=== PATIENT | male | born 1995 | race Caucasian/White ===

== ENCOUNTER 2018-05-01 15:57 | Emergency (ER) | END 2018-05-01 19:51 | disposition short-term general hospital (02) ==

== ENCOUNTER 2018-07-17 10:37 | Emergency (ER) | payer SELFPAY ==
[~2018-07-17] VITALS: Ht 182.9 cm; Wt 85.0 kg
[2018-07-17 10:40] VITALS: Ht 182.9 cm; Wt 85.0 kg
--- NOTE | 2018-07-17 12:29 | ERD ---
ER Documentation Chief Complaint Chief Complaint penile pain x 2 days and discharge HPI 23-year-old male presents with 2-day history of pain and discharge him from his penis. Patient states that he has had unprotected sex with release 10 women over the last month. Patient is having dysuria. Denies fevers, vomiting, abdominal pain, chills, hematuria. Denies past medical history. Denies allergies. Denies medications. History of jaw surgery. Denies alcohol, tobacco, drug use. Up to date on vaccines. ROS All systems reviewed and are negative except as per history of present illness. Medications Home Meds No Active Prescriptions or Reported Meds Allergies Allergies: Coded Allergies: No Known Allergy (Unverified , 05/01/18) PMhx/Soc History of Surgery: No Anesthesia Reaction: No Hx Neurological Disorder: No Hx Respiratory Disorders: No Hx Cardiac Disorders: No Hx Psychiatric Problems: No Hx Miscellaneous Medical Probl: No Hx Alcohol Use: Yes Hx Substance Use: Yes Hx Tobacco Use: Yes Physical Exam Vitals Vital Signs Date Temp Pulse Resp B/P (MAP) Pulse Ox O2 O2 Flow FiO2 Time Delivery Rate 07/17/18 98.6 89 18 120/65 98 Room Air 14:26 (83) 07/17/18 98.0 110 18 147/79 98 10:40 (101) Physical Exam Const: No acute distress Head: Atraumatic Eyes: Normal Conjunctiva ENT: Normal External Ears, Nose and Mouth. Neck: Full range of motion. No meningismus. Resp: Clear to auscultation bilaterally Cardio: Regular rate and rhythm, no murmurs Abd: Soft, non tender, non distended. Normal bowel sounds : Thick yellow discharge noted on the head of the penis. Testicles are nontender nonerythematous without edema. No signs of balanitis. Neur: Awake and alert Psych: Normal Mood and Affect Results 24 hrs Laboratory Tests Test 07/17/18 12:31 Urine Color YELLOW Urine Clarity CLOUDY Urine pH 8.0 Urine Specific [place] 1.019 Urine Ketones NEGATIVE mg/dL Urine Nitrite NEGATIVE mg/dL Urine Bilirubin NEGATIVE mg/dL Urine Urobilinogen NEGATIVE mg/dL Urine Leukocyte Esterase 3+ Lan/ul Urine Microscopic RBC 6 /HPF Urine Microscopic WBC > 182 /HPF Urine Bacteria FEW /HPF Urine Hemoglobin NEGATIVE mg/dL Urine Glucose NEGATIVE mg/dL Urine Total Protein NEGATIVE mg/dl Current Medications Medications Dose Sig/John Start Time Status Last (Trade) Ordered Route PRN Stop Time Admin Dose Reason Admin Ceftriaxone 250 mg ONCE ONCE 07/17/18 DC 07/17/18 Sodium IM 14:30 14:15 (Rocephin) 07/17/18 14:31 1,000 mg ONCE ONCE 07/17/18 DC 07/17/18 Azithromycin PO 14:30 14:15 (Zithromax) 07/17/18 14:31 Lidocaine 5 ml ONCE ONCE 07/17/18 DC 07/17/18 (Xylocaine INJ 14:30 14:15 1% (Mpf)) 07/17/18 14:31 Procedures/MDM ER course: UA, GC, fungal wet mount. 23-year-old male presents with 2-day history of pain and discharge him from his penis. Patient states that he has had unprotected sex with release 10 women over the last month. Patient is having dysuria. Denies any treatments. Urinating exacerbates the pain. Denies fevers, vomiting, abdominal pain, chills, hematuria. Wet beverly were negative so patient was treated for gonorrhea chlamydia prophylactically with ceftriaxone and azithromycin. Patient counseled regarding safe sex behaviors. I have low suspicion for paraphimosis. Patient discharged with strict ER precautions. Patient advised to follow up with PMD. All questions answered at discharge. Departure Diagnosis: Primary Impression: Penile discharge Condition: Stable MARISOL TINSLEY Jul 17, 2018 12:29
[2018-07-17 14:26] VITALS: BP 120/65; PULSE 89; RESP 18
[2018-07-17] MEDS ORDERED: CEFTRIAXONE 250 MG INJ IM ONE (14:30)
[2018-07-17] MEDS ORDERED: AZITHROMYCIN 250 MG TAB PO ONE (14:30)
[2018-07-17] MEDS ORDERED: LIDOCAINE 1% (MPF) 5 ML VIAL INJ ONE (14:30)
== END 2018-07-17 14:26 | disposition home or self-care (01) ==
LOC: FTE 10:37
DX: R36.9 Urethral discharge, unspecified (principal); Z87.891 Personal history of nicotine dependence
CPT/HCPCS: 81001; 87210; 87591; 96372; 99284; J0696

== ENCOUNTER 2018-09-20 14:12 | Emergency (ER) | payer SELFPAY ==
[~2018-09-20] VITALS: Ht 172.7 cm; Wt 94.8 kg
[2018-09-20 15:02] VITALS: BP 137/63; PULSE 95; RESP 20; Ht 172.7 cm; Wt 94.8 kg
--- NOTE | 2018-09-20 17:22 | ERD ---
ER Documentation Chief Complaint Chief Complaint c/o bilateral eye redness, wouldn't talk what happened HPI 23-year-old male, presents to the emergency department, complaining of bilateral ocular erythema, associated with yellowish discharge and itching sensation. The symptoms started 3 days ago, associated with sore throat and runny nose.. The patient denies blurry vision, no fever, no foreign bodies, no headache, no nausea or vomiting. ROS All systems reviewed and are negative except as per history of present illness. Medications Home Meds Active Scripts Polymyxin B Sulfate-TMP* (Polymyxin B-TMP Eye Drops*) 10 Ml Drops, 1 DROP BOTH EYES Q4H WHILE AWAKE for 7 Days, EA Prov:KATHY FORREST MD 09/20/18 Allergies Allergies: Coded Allergies: No Known Allergy (Unverified , 05/01/18) PMhx/Soc History of Surgery: No Anesthesia Reaction: No Hx Neurological Disorder: No Hx Respiratory Disorders: No Hx Cardiac Disorders: No Hx Psychiatric Problems: No Hx Miscellaneous Medical Probl: No Hx Alcohol Use: Yes Hx Substance Use: Yes Hx Tobacco Use: Yes Smoking Status: Never smoker FmHx Family History: diabetes, other (Asthma); No coronary disease Physical Exam Vitals Vital Signs Date Temp Pulse Resp B/P (MAP) Pulse Ox O2 O2 Flow FiO2 Time Delivery Rate 09/20/18 98.2 95 20 137/63 99 15:02 (87) Physical Exam Patient alert, oriented, vital signs stable. HEAD: Normocephalic, atraumatic. EYES: PERRLA, EOMI, Sclera and conjunctiva injected with yellowish discharge. Anterior chamber clear. None NOSE: Clear and patent nostrils. EARS: Canals clear, tympanic membranes WNL. MOUTH: normal lips and tongue, no oral lesions. THROAT: Normal oropharynx, no tonsillar exudates. NECK: Supple, No lymphadenopathy. Full ROM without pain or tenderness. HEART: RRR, no rubs, murmurs, clicks or gallops. LUNGS: Clear to auscultation. ABDOMEN: Soft, non-tender without masses or hepatosplenomegaly. EXTREMITIES: No edema bilaterally. BACK: Full ROM, no deformity, normal back exam NEURO: Cranial nerves grossly intact, no motor or sensory deficit SKIN: No rashes, no petechia. Procedures/MDM Differential diagnosis include but not limited to: infection bacterial/viral/fungal, iritis, scleritis, corneal abrasion, allergies, foreign body, glaucoma. Physical examination and clinical presentation consistent most likely with acute bacterial conjunctivitis. During the ED course the patient remained stable, no new complaints. Clinical impression discussed with patient who agrees with management. The patient is stable to be treated outpatient and will be discharged home; Some side effects of prescribed medications (headache, rash, nausea, vomiting, d iarrhea, interactions with other medications) were reviewed. The patient was instructed to follow up with the primary care provider in the next 48h. If symptoms persist, worsen or new symptoms develop, then patient should return to the ED immediately. Disclaimer: Inadvertent spelling and grammatical errors are likely due to EHR/dictation software use and do not reflect on the overall quality of patient care. Also, please note that the electronic time recorded on this note does not necessarily reflect the actual time of the patient encounter. Departure Diagnosis: Primary Impression: Acute infective conjunctivitis Condition: Stable Additional Instructions: Thank you very much for allowing us to participate in your care. Your health and safety is our top priority at [facility]. The evaluation in the emergency department has been done to rule out an acute emergency, therefore, chronic conditions like malignancy or other diseases have not been evaluated; therefore, you need to follow up with a primary care provi maria d in the next 48h. If symptoms persist, worsen or new symptoms develop, then patient should return to the ED immediately. Call your primary care doctor TOMORROW for an appointment during the next 2-4 days and bring all the information provided. Have prescriptions filled and follow precisely the directions on the label. If the symptoms get worse and your provider is unavailable, return to the Emergency Department immediately. KATHY FORREST MD Sep 20, 2018 17:22
[2018-09-20] MEDS ORDERED: POLY10DR19 BOTH EYES (17:24)
== END 2018-09-20 17:40 | disposition home or self-care (01) ==
LOC: FTE 14:12
DX: H10.023 Other mucopurulent conjunctivitis, bilateral (principal)
CPT/HCPCS: 99283